=== PATIENT | female | born 1995 | race African-American/Black ===

== ENCOUNTER 2021-01-06 12:03 | Emergency (ER) | payer BC ==
[~2021-01-06] VITALS: Ht 152.4 cm; Wt 65.8 kg
[2021-01-06] MEDS ORDERED: DICLOFENAC SODI75 MG PO (17:21)
[2021-01-06] MEDS ORDERED: ZITHROMAX500 MG PO (17:21)
== END 2021-01-06 17:28 | disposition home or self-care (01) ==
LOC: ER 12:03
DX: R10.13 Epigastric pain (principal); B96.0 Mycoplasma pneumoniae [M. pneumoniae] as the cause of diseases classified elsewhere